=== PATIENT | female | born 1955 | race Caucasian/White ===

== ENCOUNTER 2016-07-10 10:09 | Emergency (ER) | payer OTHER ==
[~2016-07-10] VITALS: Ht 160 cm; Wt 82.6 kg
[2016-07-10] MEDS ORDERED: [UNRECOGNIZED DRUG - REMARK] (10:25)
[2016-07-10] MEDS ORDERED: ALBUTEROL SULFATE 2.5 MG/3 ML NEBU NEB ONE (11:00)
[2016-07-10] MEDS ORDERED: ALBUTEROL SULFATE 2.5 MG/ 0.5 ML NEBU ONE (11:10)
[2016-07-10] MEDS ORDERED: ALBUTEROL SULFATE 2.5 MG/3 ML NEBU ONE (11:10)
--- NOTE | 2016-07-10 11:45 | NUR ---
Patient discharged to home in stable conditon. Written and verbal after care instructions given. Patient verbalizes understanding of instructions.
== END 2016-07-10 11:50 | disposition home or self-care (01) ==
LOC: ER 10:09
DX: J18.9 Pneumonia, unspecified organism (principal)
CPT/HCPCS: 71010; A4663